=== PATIENT | female | born 1980 | race African-American/Black ===

== ENCOUNTER 2024-10-30 10:10 | Emergency (ER) | payer OTHER ==
[2024-10-30 10:15] VITALS: BP 156/98; PULSE 83; RESP 20; TEMP 98.8; BMI 39.0
== END 2024-10-30 12:52 | disposition home or self-care (01) ==
LOC: FER 10:10
DX: K92.1 Melena (principal); R19.7 Diarrhea, unspecified; R10.30 Lower abdominal pain, unspecified; K64.4 Residual hemorrhoidal skin tags
CPT/HCPCS: 82272; 99283-25